=== PATIENT | male | born 1990 | race Two or more races ===

== ENCOUNTER 2018-09-18 14:55 | Emergency (ER) | payer SELFPAY ==
[~2018-09-18] VITALS: Ht 177.8 cm; Wt 97.0 kg
[2018-09-18 15:01] VITALS: BP 160/78
== END 2018-09-18 21:00 | disposition left against medical advice (07) ==
LOC: ER 14:55
DX: Z53.21 Procedure and treatment not carried out due to patient leaving prior to being seen by health care provider (principal)